=== PATIENT | female | born 1950 | race Caucasian/White ===

== ENCOUNTER 2024-11-26 08:19 | Outpatient (AMB) | payer MEDICARE, SELFPAY ==
[2024-11-26 08:26] VITALS: BP 130/70; PULSE 70; BMI 23.8
--- NOTE | 2024-11-26 08:26 | MHC.OFFVIS ---
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 She is a pleasant and active 74-year-old woman who was active till few weeks ago when she was walking a mi at a good pace without any new symptoms. She had a CT scan of chest would suggest a coronary calcium and after that she had a dedicated coronary calcium score which showed a left main calcium score of 50 with LAD calcium score of 180 and right coronary artery calcium score 71 with a total calcium score of 314. She has longstanding history of hypertension which is controlled by her the medications. She also history of hyperlipidemia for which she was recently started on Crestor 5 mg after the calcium score test. She has family history of all her brothers having coronary artery disease and interventions performed in the 70, her older brother 4 years older is currently undergoing evaluation for coronary artery bypass grafting. She denies any clear exertional chest pain. Denies any symptoms of worsening shortness of breath. No orthopnea, PND, leg edema. No lightheadedness, syncope. [facility] Medical History Hyperlipidemia HTN (hypertension) CAD (coronary artery disease) Hx of fracture of arm Family History Father CAD (coronary artery disease) Mother No problems noted. Social History Patient Tobacco Use Status: Never used Tobacco Review of Systems Const Denies chills, Denies daytime sleepiness, Denies fatigue, Denies fever(s), Denies frequent falls, Denies poor appetite, Denies snoring, Denies stops breathing during sleep, Denies weakness, Denies weight gain and Denies weight loss Eyes Denies loss of vision ENT Denies dizziness and Denies hearing loss Card Denies chest pain, Denies claudication, Denies leg edema, Denies lightheadedness, Denies palpitations, Denies dyspnea, Denies dyspnea on exertion and Denies orthopnea Resp Denies cough, Denies excessive phlegm production, Denies dyspnea, Denies dyspnea on exertion, Denies snoring and Denies wheezing GI Denies abdominal pain, Denies hematochezia, Denies change in bowel habits, Denies nausea and Denies vomiting Denies urinary frequency and Denies dysuria Musc Denies arthralgias, Denies muscle weakness, Denies numbness and Denies other (frequent falls) Skin/Breast Denies nail changes and Denies rash Neuro Denies Abnormal speech present, Denies dizziness, Denies frequent falls, Denies loss of vision, Denies memory loss, Denies numbness and Denies weakness Psych Denies depression and Denies memory loss Endo Denies fatigue and Denies palpitations Gold/Lymph Reports easy bruising and Reports other (anemia) Aller/Immun Denies wheezing Physical Exam Vital Signs: Last Vital Signs Pulse 70 11/26/24 08:26 BP 130/70 11/26/24 08:26 BMI result Body Mass Index 23.8 Const General: cooperative, comfortable, no acute distress, well developed, alert, awake, Physically active and well groomed Nutritional Appearance: well nourished and thin Orientation/consciousness: patient oriented x3 Limitations: no limitations HEENT Head: Yes normocephalic and Yes atraumatic Neck Neck: Yes trachea midline, Yes supple and Yes no JVD Resp Effort & Inspection: normal respiratory effort Auscultation: clear to auscultation bilaterally Cardio Jugular venous distension: no JVD Palpation: normal PMI Rate: regular rate Rhythm: regular rhythm Heart sounds: S1 normal heart sound present, S2 normal heart sound present, no click, no gallops, no murmurs and no rubs GI Auscultation: normal bowel sounds Skin General skin exam: no rashes or lesions noted Neuro General: patient oriented x3 and no focal motor deficits Speech: No Abnormal speech present Extrem General: Yes no clubbing, cyanosis or edema Office Procedures EKG Details: EKG shows normal sinus rhythm with nonspecific ST changes 51109-[id number], Complete Assessment & Plan Assessment & Plan (1) CAD (coronary artery disease): Code(s): I25.10 - Atherosclerotic heart disease of [place] coronary artery without angina pectoris Category: Medical Plan: Coronary artery disease in his woman with strong family history with multiple risk factors including hypertension, age, hyperlipidemia. She was no obvious symptoms although baseline EKG shows some ST changes which could represent myocardial ischemia also could represent hypertensive heart disease and high blood pressure related changes. At this point time given that she was predominantly into calcium distribution in the LAD territory I would pursue a myocardial perfusion imaging to evaluate for silent myocardial ischemia and to prognosticate from this perspective. Suggest exercise myocardial perfusion imaging given her baseline abnormal EKG to assess for significant myocardial ischemia that would change approach to treatment including pursuing invasive approach. Pathophysiology of coronary artery disease and coronary calcium score was discussed in details. Therapeutic options were discussed. I would start her on low-dose aspirin therapy given her higher calcium score burden suggestive of diffuse atherosclerotic disease. Also should be on intense lipid modification. Will review the lipid panel from your office. Blood pressure is currently well optimized. She was encouraged to maintain activity level as tolerated. Will also obtain echocardiogram to evaluate for hypertensive heart disease. Will follow up in the clinic in 3 months time, sooner p.r.n.. Thank you for allowing me to partake in her care Orders: Orders NM cardiolite stress test 2 Weeks I25.10 - Atherosclerotic heart disease of [place] coronary artery without angina pectoris, R07.9 - Chest pain, unspecified CA echo transthoracic complete Today I25.10 - Atherosclerotic heart disease of [place] coronary artery without angina pectoris CA stress test Today I25.10 - Atherosclerotic heart disease of [place] coronary artery without angina pectoris Medications: New aspirin (Ecotrin Low Strength) 81 mg PO DAILY 30 tabs 5RF Coding Level of Care Code New Pt Level 4 (84661) Complex EM visit Add On G2211 Diagnoses CAD (coronary artery disease) I25.10 CPT Codes EKG - CPT: 46327-[id number], Complete ([id number])
== END 2024-11-26 09:28 | disposition home or self-care (01) ==
LOC: HO.HCS 08:20
PROVIDERS: PCP Internal Medicine; Visit Provider Internal Medicine Cardiovascular Disease
DX: I25.10 Atherosclerotic heart disease of native coronary artery without angina pectoris (principal)
CPT/HCPCS: 93010; 99204; G2211

== ENCOUNTER → 2024-11-26 08:19 | Outpatient (BNVA) | payer MEDICARE, SELFPAY | PROVIDERS: PCP Internal Medicine; Visit Provider Internal Medicine Cardiovascular Disease | DX: I25.10 Atherosclerotic heart disease of native coronary artery without angina pectoris (principal); R94.31 Abnormal electrocardiogram [ECG] [EKG] | CPT/HCPCS: 93005; 99202 ==

== ENCOUNTER → 2025-01-29 10:47 | Outpatient (REF) | payer MEDICARE, SELFPAY ==
--- NOTE | 2025-01-29 10:50 | CA_ITS ---
Transthoracic Echocardiogram Patient (Last, First, Middle): Alexandrea Infante A Gender: Female Date of : 1950 Age: 74 Procedure Date: 01/29/2025 Procedure Type: Transthoracic Echocardiogram Location: OP Height: 172.72 cm Weight: 71.67 kg BSA: 1.85 m2 Heart Rate: 74 bpm BP: 118 / 70 mmHg Gas Operations Analyst: TO Referring MD: Dae Stephen MD Undercutter: Dae Stephen MD Symptoms: I25.10 - Atherosclerotic heart disease of [place] coronary artery without... Study Quality: Adequate ECG Rhythm: Sinus Conclusions: - 1. Normal LV ejection fraction 55-60% with impaired relaxation filling pattern 2. Normal cardiac valvular Dopplers 3. Mildly dilated ascending aorta at 3.8 cm 4. No gross pericardial effusion Findings Left Ventricle Normal left ventricular size, thickness, and systolic function. The visually estimated ejection fraction is between 55-60%. Spectral Doppler is indicative of an impaired relaxation filling pattern. E/E prime ratio is between 8 and 15 consistent with indeterminate filling pressures. Peak GLS is -15.9%, which is mildly depressed. Right Ventricle Normal right ventricular cavity size and systolic function. Atria The left atrium is normal in size. Interatrial shunt cannot be excluded. The right atrium is normal in size. Aortic Valve Normal aortic valve structure and function. There is no evidence of thickening of the aortic valve. There is no aortic valve regurgitation. Mitral Valve Likely normal mitral valve structure and function. There is trace mitral valve regurgitation. There is no mitral valve stenosis. Pulmonic Valve The pulmonic valve is likely normal. Tricuspid Valve Normal tricuspid valve structure. Tricuspid regurgitation envelope is inadequate for calculation of right ventricular systolic pressure. Normal right atrial pressure. Great Vessels The pulmonary artery was not well visualized. There is mild dilatation of the ascending aorta measuring 3.80 cm. Venous The inferior vena cava is normal in size and collapses greater than 50% with inspiration. Pericardium/Pleural There is no evidence of pericardial effusion. Prior Study Comparison No prior study available for comparison. Measurements 2D Linear Measurements IVSd: 1.04 0.6-0.9/0.6-1.0 cm LVIDd: 4.12 3.9-5.3/4.2-5.9 cm LVIDd Index: 2.23 2.4-3.2/2.2-3.1 cm/m2 LVIDs: 2.60 2.0-3.6 cm LVPWd: 1.03 0.7-1.1 cm LV Mass: 173.93 67-162/88-224 g LV Mass Index: 94.02 43-95/49-115 g/m2 LVOT Diam: 2.40 3.0+(-)1.3 cm 2D Systolic Function EF 4C: 56.30 >55% EF 2C: 58.40 >55% EF BiP: 57.40 >55% Mitral Valve MV Pk E: 0.38 MV PK A: 0.59 MV Decel Time: 234.00 E/A: 0.60 E'Lateral: 7.72 E'Medial: 3.37 E/E' Med: 11.20 E/E' Lat: 4.90 PHT: 69.00 MVA PHT: 3.19 Decel Adair: 1.61 Aortic Valve AoV Pk Mark: 0.95 AoV Mn Mark: 0.64 AoV VTI: 0.18 AoV Pk Grad: 4.00 Aov Mn Grad: 2.00 RG Cont.VTI: 4.00 LVOT LVOT Pk Mark: 0.89 LVOT Mn Mark: 0.60 LVOT VTI: 0.16 LVOT Pk Grad: 3.00 LVOT Mn Grad: 2.00 LVOT Diam: 2.40 LVOT Area: 4.52 Diastolic Function MV Pk E: 0.38 MV Pk A: 0.59 E/A: 0.60 E'Medial: 3.37 E/E' Med: 11.20 E' Laterial: 7.72 E/E' Lat: 4.90 Right Ventricle TAPSE (mm): 23.00 TVS' Mark: 11.40 Tricuspid Valve RA Press: 3.00 Great Vessels Aorta Sinus of Valsalva: 3.70 2.0-3.5 cm Ao Asc: 3.80 2.1-3.4 cm Updated in Other Vendor System with Status of Final Dae Stephen MD electronically signed on 01/29/2025 7:18:41 PM with status of Final
== END ==
LOC: HO.CARD 10:47
PROVIDERS: PCP Nurse Practitioner Adult Health; Visit Provider Internal Medicine Cardiovascular Disease
DX: I25.10 Atherosclerotic heart disease of native coronary artery without angina pectoris (principal)
CPT/HCPCS: 93306

== ENCOUNTER → 2025-01-29 10:50 | Outpatient (BNV) | payer MEDICARE, SELFPAY | PROVIDERS: PCP Nurse Practitioner Adult Health; Visit Provider Internal Medicine Cardiovascular Disease | DX: I42.8 Other cardiomyopathies (principal); R93.1 Abnormal findings on diagnostic imaging of heart and coronary circulation | CPT/HCPCS: 93306; 93356 ==

== ENCOUNTER → 2025-03-03 08:38 | Outpatient (REF) | payer MEDICARE, SELFPAY ==
--- NOTE | ~2025-03-03 | NM_ITS ---
EXERCISE MYOCARDIAL PERFUSION STUDY INDICATION: Chest pain TECHNIQUE: The patient was brought in for an exercise perfusion study on 03/03/2025. Patient performed exercise as per Jerry protocol and was injected 25 mCi of sestamibi once target heart rate was achieved. Images were obtained using the SPECT gamma camera interlaced with the gating device. Images were obtained in supine position. Resting perfusion study was performed on 03/04/2025. Patient was administered 25 mCi of sestamibi intravenously at rest. Images were then obtained in supine position. Total DLP 68 mGy-cm. Images were processed with the software and compared side to side in short axis, horizontal long axis and vertical long axis views. FINDINGS: Raw aquisition reviewed. The stress perfusion study showed no significant perfusion abnormality. Both uncorrected as well as CT attenuation corrected images were reviewed. The gated study shows normal LV systolic function with calculated LVEF of 67%. LV cavity is normal in size. The gated study shows normal wall thickening and contraction of segments. Resting study shows no significant perfusion abnormality. Gating at rest reveals normal wall motion with ejection fraction at 47%. The findings are consistent with no clear reversible or fixed perfusion abnormality. NM/NM cardiolite stress test IMPRESSION: 1. Myocardial perfusion imaging study shows normal myocardial perfusion. 2. Gated LVEF is 57% during stress and 47% during rest. Correlate with echocardiogram. 3. Transient ischemic dilatation not present. EKG component of the test reported separately. Electronically signed by: Ed Oneal MD 03/04/2025 03:50 PM EDT
--- NOTE | 2025-03-03 08:42 | CA_ITS ---
Acquisition Time: 2025-03-03 09:26:05 Total Exercise Time: 00:05:05 Test Indications: CP Medications: SEE H&P Protocol: JERRY Max HR: 151 BPM 103% of Pred: 146 BPM Max BP: 180/114 mmHG Max Work Load: 4.6 METS Exercise stress test with exercise 5 mins 5 secs of Jerry Protocol, held at Stage 1, achieving 102% MPHR, with reports of SOB, no chest pain, with isolated PVCs, with hypertensive response - basleine BP at 160/100 that randy to 180/114 with exercise. Without EKG changes with exercise; baseline ST-T wave abnormality. In recovery, breathing returned tpo bseline. Nuclear images pending. Test reviewed with Dr. Gerard. Referred By: Dae Stephen Electronically Signed By: Robe Monteiro
== END ==
LOC: HO.CARD 08:38
PROVIDERS: PCP Nurse Practitioner Adult Health; Visit Provider Internal Medicine Cardiovascular Disease
DX: I25.10 Atherosclerotic heart disease of native coronary artery without angina pectoris (principal); R07.9 Chest pain, unspecified
CPT/HCPCS: 78452; 93017; A9500

== ENCOUNTER → 2025-03-03 08:42 | Outpatient (BNV) | payer MEDICARE, SELFPAY | PROVIDERS: PCP Nurse Practitioner Adult Health | DX: R06.02 Shortness of breath (principal); I49.3 Ventricular premature depolarization; R03.0 Elevated blood-pressure reading, without diagnosis of hypertension | CPT/HCPCS: 78452; 93016; 93018 ==

== ENCOUNTER 2025-03-05 09:42 | Outpatient (AMB) | payer MEDICARE, SELFPAY ==
--- NOTE | 2025-03-05 09:49 | A.OFFVIS_ITS ---
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 Underwent a stress test with nuclear imaging which showed no evidence of myocardial ischemia. With a moderate workload. She also underwent an echocardiogram showed normal LV ejection fraction with mildly enlarged thoracic aorta. She has been taking all her medications. She says last LDL was 56 mg/dL, do not have a copy of the same. Patient denies any symptoms exertional chest pain or shortness of breath. She is most worried about falling as she has osteoporosis. [facility] Medical History Hyperlipidemia HTN (hypertension) CAD (coronary artery disease) Hx of fracture of arm Family History Father CAD (coronary artery disease) Mother No problems noted. Social History Patient Tobacco Use Status: Never used Tobacco Review of Systems Const Denies chills, Denies fatigue, Denies fever(s), Denies frequent falls, Denies w eakness, Denies weight gain and Denies weight loss ENT Denies dizziness Card Denies chest pain, Denies leg edema, Denies lightheadedness, Denies palpi tations, Denies dyspnea, Denies dyspnea on exertion, Denies orthopnea and Denies other (loss of consciousness) Resp Denies cough, Denies dyspnea and Denies dyspnea on exertion GI Denies hematochezia and Denies change in stool character Musc Denies abnormal gait, Denies muscle weakness, Denies numbness, Denies radiating pain into limb and Denies tingling Neuro Denies Abnormal speech present, Denies abnormal gait, Denies dizziness, Denies frequent falls, Denies numbness, Denies tingling and Denies weakness Endo Denies fatigue and Denies palpitations Physical Exam Vital Signs: Last Vital Signs Pulse 102 H 03/05/25 09:56 BP 120/80 03/05/25 09:56 BMI result Body Mass Index 24.1 Const General: cooperative, comfortable, no acute distress, well developed, alert, awake, Physically active and well groomed Nutritional Appearance: well nourished and thin Orientation/consciousness: patient oriented x3 Limitations: no limitations HEENT Head: Yes normocephalic and Yes atraumatic Neck Neck: Yes trachea midline, Yes supple and Yes no JVD Resp Effort & Inspection: normal respiratory effort Auscultation: clear to auscultation bilaterally Cardio Jugular venous distension: no JVD Palpation: normal PMI Rate: regular rate Rhythm: regular rhythm Heart sounds: S1 normal heart sound present, S2 normal heart sound present, no click, no gallops, no murmurs and no rubs GI Auscultation: normal bowel sounds Skin General skin exam: no rashes or lesions noted Neuro General: patient oriented x3 and no focal motor deficits Speech: No Abnormal speech present Extrem General: Yes no clubbing, cyanosis or edema Assessment & Plan Assessment & Plan (1) CAD (coronary artery disease): Code(s): I25.10 - Atherosclerotic heart disease of [place] coronary artery without angina pectoris Category: Medical Plan: Patient with presence of coronary atherosclerosis noted on coronary calcium score with heavy burden of coronary calcium predominantly in the LAD territory with normal myocardial perfusion imaging. She is currently not having any concerning exertional symptoms. We discussed about symptoms of myocardial ischemia. Advised to call me with any symptoms. Discussed about continue aggressive medical therapy. Low-dose aspirin therapy is advised. Continue aggressive blood pressure control. Currently well optimized on current therapy. Advised to monitor blood pressure at home maintain a log. Goal blood pressure less than 130/84. Continue statin therapy. With low-dose Crestor therapy her LDL is extremely well optimized. Continue the same. (2) Enlarged thoracic aorta: Code(s): I77.89 - Other specified disorders of arteries and arterioles Category: Medical Plan: Mildly enlarged thoracic aorta most likely again atherosclerotic in nature. Discussed with her about the same. Advised to continue aggressive vascular risk factor modification above. Follow-up echocardiogram in 1 year's time. Will follow up in the clinic in 1 year's time, sooner p.r.n.. Thank you for allowing me to partake in her care Coding Level of Care Code Est Pt Level 4 (42366) Complex EM visit Add On G2211 Diagnoses CAD (coronary artery disease) I25.10 Enlarged thoracic aorta I77.89
[2025-03-05 09:56] VITALS: BP 120/80; PULSE 102; BMI 24.1
== END 2025-03-05 10:21 | disposition home or self-care (01) ==
LOC: HO.HCS 09:43
PROVIDERS: PCP Nurse Practitioner Adult Health; Visit Provider Internal Medicine Cardiovascular Disease
DX: I25.10 Atherosclerotic heart disease of native coronary artery without angina pectoris (principal); I77.89 Other specified disorders of arteries and arterioles
CPT/HCPCS: 99214; G2211

== ENCOUNTER → 2025-03-05 09:42 | Outpatient (BNVA) | payer MEDICARE, SELFPAY | PROVIDERS: PCP Nurse Practitioner Adult Health; Visit Provider Internal Medicine Cardiovascular Disease | DX: I25.10 Atherosclerotic heart disease of native coronary artery without angina pectoris (principal); I77.89 Other specified disorders of arteries and arterioles | CPT/HCPCS: 99212 ==